=== PATIENT | male | born 1990 | race Caucasian/White ===

== ENCOUNTER 2018-08-11 21:14 | Emergency (ER) | payer MEDICAID, SELFPAY ==
[2018-08-11 21:14] VITALS: BP 138/82; PULSE 117; RESP 16; TEMP 35.6; O2SAT 95; BMI 26.4
--- NOTE | 2018-08-11 22:04 | ED.VISSUMM ---
- ER Visit Summary Date of Service: 08/11/18 Chief Complaint: Back injury History of Present Illness: The patient is a 28 M who presents for a back injury that occurred today at work. 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 He was bent over lifting a bucket when he had severe right lower back pain upon standing. Pain is been continuous and worse with movement. He has difficulty changing position. He denies any tingling, weakness or radiation to the legs. No abdominal pain, urinary retention or incontinence, fecal retention or incontinence, saddle anesthesia. Patient states she had mild numbness in his feet. No medical history. Patient tried ibuprofen without relief. Patient does not want to file a workers comp. Physical Examination: Vital signs: afebrile, hemodynamically stable, no hypoxia on room air General: well nourished, well developed, in no distress Skin: warm, dry, no rash, no pallor HEENT: normocephalic and atraumatic; PERRL, EOMI, moist mucous membranes Cardiovascular: Tachycardic rate and rhythm without murmurs, no peripheral edema, 2+ pulses all distal extremities Respiratory: No increased work of breathing, lungs are clear to auscultation bilaterally, no rales, rhonchi or wheezing Abdominal: Abdomen is soft, mildly tender in the right lateral abdomen, worse with engagement of the abdominal musculature, with normoactive bowel sounds, no guarding or rebound, no masses Back: Tenderness in the right lumbar region with palpable paraspinal muscle spasm, tender to palpation, no midline deformities or step-offs. No left-sided tenderness. Straight leg raise is negative bilaterally. MSK: Moves all extremities, no deformities, normal strength Neuro: Awake and alert, oriented ?4. No facial droop, sensation and motor function intact and symmetric including in the bilateral feet Test Results: [] Emergency Department Course and Treatment: Patient has no red flag symptoms that would be concerning for spinal cord injury or infection. He does have palpable muscle spasm in the right lower back and involvement of the right lateral abdominal musculature, with tenderness and worsening of the pain with contraction of his abdominal wall. Patient did not want an injection. Patient was given naproxen and Flexeril in the emergency department. He was given prescriptions for the same. Patient discharged home with a ride. Treatment Plan: [] Disposition: [] Impression: Right lumbar strain This note was generated with [employer] dictation software. It may contain incorrect words, spelling, and punctuation that were not noted in review of the chart prior to signing ED Disposition - Plan for ED Patient: Chief Complaint: Back Prescriptions: Naproxen [Naprosyn] 500 mg PO BID PRN #20 tab PRN Reason: Pain Cyclobenzaprine [Flexeril] 5 - 10 mg PO TID PRN #20 tab PRN Reason: Muscle Spasm Referrals: [facility] Doctor,Out of [Primary Care Provider] -
[2018-08-11] MEDS: Naproxen 500 MG Tablet PO (22:07)
--- NOTE | 2018-08-11 22:08 | ED.DEP ---
ED Disposition - Plan for ED Patient: Disposition: Home or Assisted Living Chief Complaint: Back Instructions: ED Sprain Strain Lumbar, ED Low Back Pain Injury Prescriptions: Naproxen [Naprosyn] 500 mg PO BID PRN #20 tab PRN Reason: Pain Cyclobenzaprine [Flexeril] 5 - 10 mg PO TID PRN #20 tab PRN Reason: Muscle Spasm Referrals: [facility] Doctor,Out of [Primary Care Provider] - Marco Gonzalez MD [STAFF PHYSICIAN] - Additional Instructions: No driving or operating any heavy equipment or doing any other dangerous activities while taking the Flexeril, as it may make you feel sleepy or loopy. If you have any worsening of your condition or any new concerning symptoms, please return immediately to the emergency department for another evaluation.
[2018-08-11 22:40] VITALS: RESP 16
== END 2018-08-11 22:41 | disposition home or self-care (01) ==
PROVIDERS: Emergency Provider Emergency Medicine
DX: S39.012A Strain of muscle, fascia and tendon of lower back, initial encounter (principal); M62.830 Muscle spasm of back; X50.9XXA Other and unspecified overexertion or strenuous movements or postures, initial encounter; Y93.89 Activity, other specified; Y92.89 Other specified places as the place of occurrence of the external cause; Y99.0 Civilian activity done for income or pay; R20.0 Anesthesia of skin
CPT/HCPCS: 99283

== ENCOUNTER 2018-09-10 10:42 | Emergency (ER) | payer MEDICAID, SELFPAY ==
[2018-09-10 10:43] VITALS: BP 136/75; PULSE 97; RESP 18; TEMP 36.6; O2SAT 98; BMI 27.7
--- NOTE | 2018-09-10 11:02 | ED.VISSUMM ---
- ER Visit Summary Date of Service: 09/10/18 Chief Complaint: [Head injury] History of Present Illness: The patient is a 28 M [presents the emergency department complaint of a head injury that occurred about 4 hours ago. Patient states that he was working in his garage when he bent over to pick some tools up off the floor and when he stood up he struck his head on a car lift. Patient states that things kind of went black for a few seconds but he continued to stand and did not fall. There is no loss of consciousness. Patient denies any neck pain. He denies any visual changes. He said no nausea or vomiting. Patient does complain of a headache to the left side of his head.] Physical Examination: [HEENT-PERRLA, EOMI. Cranial nerves II through XII grossly intact. TMs clear. Mucous membranes moist. No adenopathy. No external evidence of trauma to the patient's head or scalp. No bony depressions noted. No scalp hematomas. Cardiovascular-regular rate and rhythm without murmur or ectopy Lungs-clear to auscultation, chest wall stable without crepitus or subcu emphysema Abdomen-normoactive bowel sounds, soft, nontender, no rebound or rigidity, no peritoneal signs. Neuro [id number] and heel stewart testing within normal limits, negative Romberg, negative pronator drift, fundi benign Extremities-intact ?4, normal range of motion, normal pulses, atraumatic] Test Results: [None indicated] Emergency Department Course and Treatment: [Patient was given a dose of ibuprofen] Treatment Plan: [Patient advised use ibuprofen or Tylenol for discomfort. Patient does not meet criteria for any type of imaging at this time. Disposition: Discharge to home in stable condition] Impression: [Closed head injury/concussion] This note was generated with [employer] dictation software. It may contain incorrect words, spelling, and punctuation that were not noted in review of the chart prior to signing ED Disposition - Plan for ED Patient: Chief Complaint: Head Injury Referrals: [facility] Doctor,Out of [Primary Care Provider] -
--- NOTE | 2018-09-10 11:05 | DCINST.ED_ITS ---
ED Disposition - Plan for ED Patient: Chief Complaint: Head Injury Instructions: ED Head Injury Closed Referrals: [facility] Doctor,Out of [Primary Care Provider] - Silva Fountain MD [STAFF PHYSICIAN] - 3-5 Days
[2018-09-10] MEDS: Ibuprofen 600 MG Tablet PO (11:11)
--- OUTSIDE RECORDS SUMMARY | 2018-10-27 14:11 | XMS RPT_ITS ---
:1990 Author Organization OHIP Care Team Providers Name Role Phone Primay Care Physicia, No Primary Care Unavailable Herminia Boothe Attending Unavailable Sofiya Nuñez Attending Unavailable Primay Care Physicia, No Primary Care Unavailable Ean Rivera Attending Unavailable PROVIDER, UNKNOWN Referring Unavailable FLORENTINO LUNDBERG Primary Care Unavailable Josse Negrete Attending Unavailable PROVIDER, UNKNOWN Referring Unavailable FLORENTINO LUNDBERG Primary Care Unavailable Giuliana Oliva Attending Unavailable PROVIDER, UNKNOWN Referring Unavailable UNKNOWN, PROVIDER Primary Care Unavailable PROVIDER, UNKNOWN Referring Unavailable FLORENTINO LUNDBERG Primary Care Unavailable MADDIE WOO Attending Unavailable [employer] Attending Unavailable [employer] Attending Unavailable PROBLEMS PROBLEMS DATE TYPE CONDITION / CODE ATTENDING STATUS SOURCE 06/20/2018 Admitting Other chronic pain MADDIE WOO Active [employer] Diagnosis / G89.29(ICD-10) System Repository 06/20/2018 Admitting Low back pain / MADDIE WOO [email or web address] Diagnosis M54.5(ICD-10) System Repository 06/20/2018 Admitting Allergy status to MADDIE WOO [email or web address] Diagnosis penicillin / System Z88.0(ICD-10) Repository 06/20/2018 Admitting Nicotine MADDIE WOO [employer] Diagnosis dependence, System cigarettes, Repository uncomplicated / F17.210(ICD-10) 06/20/2018 Admitting Encounter for MADDIE WOO [email or web address] Diagnosis immunization / System Z23(ICD-10) Repository 06/11/2018 Active Acute pharyngitis, NA Active [facility] unspecified / Clinic Other J02.9(ICD-10) [place] Repository 06/11/2018 Active Otitis media, NA Active [facility] unspecified, Clinic Other unspecified ear / [place] H66.90(ICD-10) Repository 05/11/2018 Active Low back pain / NA Active [facility] M54.5(ICD-10) Clinic Other [place] Repository 05/11/2018 Active Gastro-esophageal NA Active [facility] reflux disease Clinic Other without esophagitis [place] / K21.9(ICD-10) Repository 05/11/2018 Active Other chest pain / NA Active [facility] R07.89(ICD-10) Clinic Other [place] Repository 05/11/2018 Admitting Unknown / [employer] Active [facility] [facility] diagnosis UNK(Unknown) [facility] Repository PROCEDURES PROCEDURES No Procedure Records FoundRESULTS RESULTS DISCHARGE INSTRUCTION Observed: 09/10/2018 Status: F Source: BLAZE 11:05 AM [facility] Medical Records Department [address] [place] [address] Discharge Instruction 09/10/18 1104 MR#: [id number] Acct: [id number] Name: HOANG JACOBSON Rep #: [id number] : 1990 28 From: Sofiya Nuñez DO [facility]CP[facility] Status: PRE ER ED Disposition - Plan for ED Patient: Chief Complaint: Head Injury Instructions: ED Head Injury Closed Referrals: [facility] Doctor,Out of [Primary Care Provider] - Silva Fountain MD [STAFF PHYSICIAN] - 3-5 Days What to do if you have Problems For any increased pain, shortness of breath, bleeding, nausea or vomiting, chest pain, or any unexpected problems, contact your Primary Care Provider. Call [facility] ([phone]) or report to the closest Emergency Room. Call 911 if necessary. 09/10/18 1105 <Electronically signed by Sofiya Nuñez DO> Date Sofiya Nuñez DO Cosigner Signature (If Indicated): Date CC: [facility] EMERGENCY DEPARTMENT Observed: 09/10/2018 Status: F Source: CONVERSE SUMMARY 11:04 AM [facility] Medical Records Department [address] [facility] [address] [place] [address] Emergency Department Summary 09/10/18 1102 MR#: [id number] Acct: [id number] Name: HOANG JACOBSON Rep #: [id number] : 1990 28 From: Sofiya Nuñez DO PCP: [facility] DOCTOR Status: PRE ER - ER Visit Summary Date of Service: 09/10/18 Chief Complaint: [Head injury] History of Present Illness: The patient is a 28 M [presents the emergency department complaint of a head injury that occurred about 4 hours ago. Patient states that he was working in his garage when he bent over to pick some tools up off the floor and when he stood up he struck his head on a car lift. Patient states that things kind of went black for a few seconds but he continued to stand and did not fall. There is no loss of consciousness. Patient denies any neck pain. He denies any visual changes. He said no nausea or vomiting. Patient does complain of a headache to the left side of his head.] Physical Examination: [HEENT-PERRLA, EOMI. Cranial nerves II through XII grossly intact. TMs clear. Mucous membranes moist. No adenopathy. No external evidence of trauma to the patient's head or scalp. No bony depressions noted. No scalp hematomas. Cardiovascular-regular rate and rhythm without murmur or ectopy Lungs-clear to auscultation, chest wall stable without crepitus or subcu emphysema Abdomen-normoactive bowel sounds, soft, nontender, no rebound or rigidity, no peritoneal signs. Neuro dmev-sjamsk-zcut and heel stewart testing within normal limits, negative Romberg, negative pronator drift, fundi benign Extremities-intact 4, normal range of motion, normal pulses, atraumatic] Test Results: [None indicated] Emergency Department Course and Treatment: [Patient was given a dose of ibuprofen] Treatment Plan: [Patient advised use ibuprofen or Tylenol for discomfort. Patient does not meet criteria for any type of imaging at this time. Disposition: Discharge to home in stable condition] Impression: [Closed head injury/concussion] This note was generated with [employer] dictation software. It may contain incorrect words, spelling, and punctuation that were not noted in review of the chart prior to signing ED Disposition - Plan for ED Patient: Chief Complaint: Head Injury Referrals: [facility] Doctor,Out of [Primary Care Provider] - What to do if you have Problems For any increased pain, shortness of breath, bleeding, nausea or vomiting, chest pain, or any unexpected problems, contact your Primary Care Provider. Call [facility] ([phone]) or report to the closest Emergency Room. Call 911 if necessary. 09/10/18 1104 <Electronically signed by Sofiya Nuñez DO> Date Sofiya Nuñez DO Cosigner Signature (If Indicated): Date CC: [facility] EMERGENCY DEPARTMENT Observed: 08/12/2018 Status: F Source: BLAZE SUMMARY 12:17 AM [facility] Medical Records Department [address] [place] [address] Emergency Department Summary 08/11/18 2204 MR#: [id number] Acct: [id number] Name: HOANG JACOBSON Rep #: [id number] : 1990 28 From: Herminia Boothe MD PCP: [facility] DOCTOR Status: DEP ER - ER Visit Summary Date of Service: 08/11/18 Chief Complaint: Back injury History of Present Illness: The patient is a 28 M who presents for a back injury that occurred today at work. 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 He was bent over lifting a bucket when he had severe right lower back pain upon standing. Pain is been continuous and worse with movement. He has difficulty changing position. He denies any tingling, weakness or radiation to the legs. No abdominal pain, urinary retention or incontinence, fecal retention or incontinence, saddle anesthesia. Patient states she had mild numbness in his feet. No medical history. Patient tried ibuprofen without relief. Patient does not want to file a workers comp. Physical Examination: Vital signs: afebrile, hemodynamically stable, no hypoxia on room air General: well nourished, well developed, in no distress Skin: warm, dry, no rash, no pallor HEENT: normocephalic and atraumatic; PERRL, EOMI, moist mucous membranes Cardiovascular: Tachycardic rate and rhythm without murmurs, no peripheral edema, 2+ pulses all distal extremities Respiratory: No increased work of breathing, lungs are clear to auscultation bilaterally, no rales, rhonchi or wheezing Abdominal: Abdomen is soft, mildly tender in the right lateral abdomen, worse with engagement of the abdominal musculature, with normoactive bowel sounds, no guarding or rebound, no masses Back: Tenderness in the right lumbar region with palpable paraspinal muscle spasm, tender to palpation, no midline deformities or step-offs. No left-sided tenderness. Straight leg raise is negative bilaterally. MSK: Moves all extremities, no deformities, normal strength Neuro: Awake and alert, oriented 4. No facial droop, sensation and motor function intact and symmetric including in the bilateral feet Test Results: [] Emergency Department Course and Treatment: Patient has no red flag symptoms that would be concerning for spinal cord injury or infection. He does have palpable muscle spasm in the right lower back and involvement of the right lateral abdominal musculature, with tenderness and worsening of the pain with contraction of his abdominal wall. Patient did not want an injection. Patient was given naproxen and Flexeril in the emergency department. He was given prescriptions for the same. Patient discharged home with a ride. Treatment Plan: [] Disposition: [] Impression: Right lumbar strain This note was generated with [employer] dictation software. It may contain incorrect words, spelling, and punctuation that were not noted in review of the chart prior to signing ED Disposition - Plan for ED Patient: Chief Complaint: Back Prescriptions: Naproxen [Naprosyn] 500 mg PO BID PRN #20 tab PRN Reason: Pain Cyclobenzaprine [Flexeril] 5 - 10 mg PO TID PRN #20 tab PRN Reason: Muscle Spasm Referrals: [facility] Doctor,Out of [Primary Care Provider] - What to do if you have Problems For any increased pain, shortness of breath, bleeding, nausea or vomiting, chest pain, or any unexpected problems, contact your Primary Care Provider. Call [facility] ([phone]) or report to the closest Emergency Room. Call 911 if necessary. 08/12/18 0017 <Electronically signed by Herminia Boothe MD> Date Herminia Boothe MD Cosigner Signature (If Indicated): Date CC: [facility] DOCTOR DISCHARGE INSTRUCTION Observed: 08/11/2018 Status: F Source: BLAZE 11:48 PM [facility] Medical Records Department [address] [place] [address] Discharge Instruction 08/11/18 2208 MR#: [id number] Acct: [id number] Name: HOANG JACOBSON Rep #: [id number] : 1990 28 From: Herminia Boothe MD PCP: [facility] Status: DEP ER ED Disposition - Plan for ED Patient: Disposition: Home or Assisted Living Chief Complaint: Back Instructions: ED Sprain Strain Lumbar, ED Low Back Pain Injury Prescriptions: Naproxen [Naprosyn] 500 mg PO BID PRN #20 tab PRN Reason: Pain Cyclobenzaprine [Flexeril] 5 - 10 mg PO TID PRN #20 tab PRN Reason: Muscle Spasm Referrals: [facility] Doctor,Out of [Primary Care Provider] - Marco Gonzalez MD [STAFF PHYSICIAN] - Additional Instructions: No driving or operating any heavy equipment or doing any other dangerous activities while taking the Flexeril, as it may make you feel sleepy or loopy. If you have any worsening of your condition or any new concerning symptoms, please return immediately to the emergency department for another evaluation. What to do if you have Problems For any increased pain, shortness of breath, bleeding, nausea or vomiting, chest pain, or any unexpected problems, contact your Primary Care Provider. Call [facility] ([phone]) or report to the closest Emergency Room. Call 911 if necessary. 08/11/18 2348 <Electronically signed by Herminia Boothe MD> Date Herminia Boothe MD Cosigner Signature (If Indicated): Date CC: [facility] ED PROV NOTE Observed: 06/11/2018 Status: COMPLETED Source: [place] 12:47 PM CLINIC OTHER CAMPUS REPOSITORY O ID: [id number] Author: Candace Ortiz) MENG Billy Service: Emergency Medicine Author Type: Physician Headwaiter/Headwaitress Type: ED Provider Notes Filed: 06/11/2018 1:45 PM Note Text: ED Provider Note Patient Name: Hoang Jacobson SERVICE DATE: 06/11/18 History Patient presents with: Sore Throat HPI This is a 28-year-old male with history of back pain who presents to the ED with complaints of sore throat ?2 days. States that pain is worse with swallowing but he is still able to eat and drink without difficulty. He has not tried anything for his symptoms. Denies any voice changes. He has also had some left ear pain over the past few days. Endorses cough and rhinorrhea. Unsure of any known sick contacts. Denies any fever, chills, neck pain, nausea, vomiting, diarrhea, lightheadedness or dizziness. PAST MEDICAL HISTORY Diagnosis Date - Back pain No past surgical history on file. No family history on file. Social History Social History Main Topics - Smoking status: Current Every Day Smoker Packs/day: 0.50 Types: Cigarettes - Smokeless tobacco: Never Used - Alcohol use No - Drug use: No - Sexual activity: Yes Partners: Female ALLERGIES Allergen Reactions - Penicillins Hives not sure, my mother told me I was ALLERGIC when I was young Review of Systems Constitutional: Negative for chills and fever. HENT: Positive for ear pain, rhinorrhea and sore throat. Negative for congestion, facial swelling, trouble swallowing and voice change. Eyes: Negative for visual disturbance. Respiratory: Negative for shortness of breath. Cardiovascular: Negative for chest pain. Gastrointestinal: Negative for abdominal pain, diarrhea, nausea and vomiting. Musculoskeletal: Negative for arthralgias and neck pain. Skin: Negative for color change. Neurological: Negative for dizziness, syncope, light-headedness, numbness and headaches. All other systems reviewed and are negative. Physical Exam BP 123/78 Pulse 92 Temp (Src) 97.7 (Oral) Resp 16 Ht 6' 1 (1.85m) Wt 200 lb (90.7kg) SpO2 95% BMI 26.39 kg/(m2). Physical Exam Constitutional: He is oriented to person, place, and time. He appears well-developed and well-nourished. No distress. Well-appearing male, calm, in no acute distress. HENT: Head: Normocephalic and atraumatic. Right Ear: Tympanic membrane, external ear and ear canal normal. No mastoid tenderness. Tympanic membrane is not erythematous and not bulging. Left Ear: External ear and ear canal normal. No mastoid tenderness. Tympanic membrane is erythematous and bulging. Nose: Nose normal. Mouth/Throat: Uvula is midline, oropharynx is clear and moist and mucous membranes are normal. No trismus in the jaw. No uvula swelling. No oropharyngeal exudate, posterior oropharyngeal edema or tonsillar abscesses. Post oropharynx with mild erythema and post nasal drainage. No exudates, swelling, peritonsillar abscess or trismus. Patient managing all secretions and speaking in complete sentences without difficulty. Eyes: Pupils are equal, round, and reactive to light. Conjunctivae and EOM are normal. Neck: Normal range of motion. Neck supple. No nuchal rigidity or meningismus. Cardiovascular: Normal rate, regular rhythm, normal heart sounds and intact distal pulses. No murmur heard. Pulmonary/Chest: Effort normal and breath sounds normal. No respiratory distress. He has no wheezes. He has no rales. Abdominal: Soft. He exhibits no distension. There is no tenderness. Musculoskeletal: Normal range of motion. He exhibits no edema or deformity. Neurological: He is alert and oriented to person, place, and time. Skin: Skin is warm and dry. Psychiatric: He has a normal mood and affect. His speech is normal and behavior is normal. Judgment and thought content normal. Cognition and memory are normal. Nursing note and vitals reviewed. Diagnostic Testing ED Labs Ordered and Reviewed - No data to display Procedures ED Course / Clinical Impression Vital signs were reviewed. Triage records and medical records were reviewed. Nursing notes were reviewed and incorporated. Patient is a 28-year-old male who presents with complaints of sore throat ?2 days. Pt is well-appearing, hemodynamically stable and afebrile. On exam, throat mildly erythematous but left ear with findings consistent with acute otitis media. Will treat with azithromycin as patient has penicillin allergy which he believes is severe. Will also provide Rx for Tylenol for pain. Do not feel his history and exam consistent with strep however ATBs for otitis will cover for this as well. Pt to f/u with PCP. RT ED red flags/precautions and follow-up instructions were provided. I encouraged patient to return to ED immediately if symptoms worsen and/or new symptoms develop. Patient discharged home in stable condition. Patient expressed understanding and is amendable to this course of action. Patient understood suspected diagnosis and instruction. No barriers of communication were apparent and I answered all questions. This note was generated using [employer] voice dictation. All resonable efforts were made to correct dictation errors but they still may occur given the nature of the software. Clinical Impressions as of Jun 11 1343 Sore throat Acute otitis media, unspecified otitis media type MDM / Disposition / Plan Disposition The patient was discharged and given RX. Counseled patient regarding suspected diagnosis. As well as the need for follow-up. Discharged home with verbal and written instructions. They were instructed to return as needed for persistent or worsening symptoms or any new concerns. Condition at disposition is stable and improved. SIGNATURE: LES Parker) MENG Billy 06/11/18 1345 ED NOTE Observed: 06/11/2018 Status: COMPLETED Source: [place] 12:33 PM [facility] REPOSITORY HNO ID: [id number] Author: Rona ValdezRn) LISA Weber Service: Emergency Medicine Author Type: Registered Nurse Type: ED Notes Filed: 06/11/2018 12:34 PM Note Text: Pt states he developed throat pain x a few days. Denies fevers/chills. Able to speak in full sentences in triage as well as manage secretions with no difficulty. ED NOTE Observed: 05/11/2018 Status: COMPLETED Source: [place] 12:41 PM [facility] REPOSITORY HNO ID: [id number] Author: Roxy ValdezRn) LIAS Henning Service: Emergency Medicine Author Type: Registered Nurse Type: ED Notes Filed: 05/11/2018 12:41 PM Note Text: Patient returned to the Emergency Department. CHEST 2 VIEWS Observed: 05/11/2018 Status: F Source: [facility] 12:41 PM HEALTH SYSTEM REPOSITORY Performed at [facility] APPROVED BY: Darin Cohen MD EXAMINATION: CHEST RADIOGRAPH (2 VIEW FRONTAL & LATERAL) CLINICAL HISTORY: Chest pain. No known injury. MQ: XC2_5 Comparison: 10/02/2011 RESULT: Lines, tubes, and devices: None. Lungs and pleura: No consolidation. No lung mass. No pleural effusion. Cardiomediastinal silhouette: Normal cardiomediastinal silhouette. Other: No acute bony abnormality. IMPRESSION: No acute radiographic abnormality. LUMBOSACRAL SPINE 2 OR Observed: 05/11/2018 Status: F Source: [facility] 3 VIEWS 12:41 PM HEALTH SYSTEM REPOSITORY Performed at [facility] APPROVED BY: Darin Cohen MD EXAM TITLE: LUMBOSACRAL SPINE 2 OR 3 VIEWS DATE: 05/11/2018 12:29 COMPARISON: Lumbar spine radiographs dated 10/22/2014. CLINICAL INDICATION/HISTORY: Patient present with back pain. TECHNIQUE: AP, lateral and cone down lateral views of the lumbar spine are presented. FINDINGS: There are five swx-hlo-xuxqxgm lumbar vertebra. No fracture or subluxations are noted. The disc spaces are well preserved. Minimal rightward convex scoliotic curvature lumbar spine. IMPRESSION: No acute findings radiographically. Minimal rightward convex scoliotic curvature lumbar spine. ED NOTE Observed: 05/11/2018 Status: COMPLETED Source: [place] 12:30 PM [facility] OTHER [facility]US REPOSITORY HNO ID: [id number] Author: Roxy ValdezRn) LISA Henning Service: Emergency Medicine Author Type: Registered Nurse Type: ED Notes Filed: 05/11/2018 12:41 PM Note Text: Patient transported to xray ED NOTE Observed: 05/11/2018 Status: COMPLETED Source: [place] 12:18 PM [facility] OTHER CAMPUS REPOSITORY HNO ID: [id number] Author: Roxy Zavaleta) LISA Henning Service: Emergency Medicine Author Type: Registered Nurse Type: ED Notes Filed: 05/11/2018 12:19 PM Note Text: Ready for xray HEMOGRAM/DIFF Collected: 05/11/2018 Status: F Source: [facility] 12:00 PM HEALTH SYSTEM REPOSITORY TYPE CODE TESTS RESULT OUT OF REFERENCE UNITS RANGE LAB WBC(LOINC) 4.23-9.07 thou/cmm WBC High 9.09 LAB RBC(LOINC) 4.63-6.08 mil/cmm Low RBC 4.31 LAB HGB(LOINC) 13.7-17.5 g/dL Hgb 13.7 LAB HCT(LOINC) 40.1-51.0 % Low Hct 39.8 LAB MCV(LOINC) 83.2-95.6 fl MCV 92.3 LAB MCH(LOINC) 25.7-32.2 pg MCH 31.8 LAB MCHC(LOINC 32.3-36.5 % ) MCHC 34.4 LAB RDW(LOINC) 11.6-14.4 % RDW 11.9 LAB RDWSD(LOIN 36.1-45.8 fl C) RDW SD 39.9 LAB PLT(LOINC) 141-365 thou/cmm Platelet 225 LAB MPV(LOINC) 8.7-12.0 fl MPV 9.0 LAB NRBCR(LOIN 0.0-0.2 % C) Nucleated RBC % 0.2 LAB SEG(LOINC) % Seg Neutrophil 53.1 LAB IGRE(LOINC % ) Immature Grans 1.20 LAB LYMPH(LOIN % C) Lymphocyte 32.5 LAB MNO(LOINC) % Monocyte 8.3 LAB EOSIN(LOIN % C) Eosinophil 4.2 LAB BASO(LOINC % ) Basophil 0.7 LAB NRBCA(LOIN 0.00-0.01 thou/cmm C) High Nucleated RBC 0.02 Absolute LAB SEGN(LOINC 1.78-5.38 thou/cmm ) Abs. Neut (ANC) 4.83 LAB IGAB(LOINC 0.00-0.05 thou/cmm ) Abs High Immature Grans 0.11 LAB LYMN(LOINC 0.84-2.85 thou/cmm ) Abs. High Lymph 2.95 LAB MONON(LOIN 0.30-0.82 thou/cmm C) Abs. [place] 0.75 LAB EOSN(LOINC 0.04-0.54 thou/cmm ) Abs. Eosin 0.38 LAB BASON(LOIN 0.01-0.08 thou/cmm C) Abs. Baso 0.06 Performed By: #### CBCD1 #### [place] [address] [facility] TROPONIN I Collected: 05/11/2018 Status: F Source: [facility] 12:00 HEALTH SYSTEM REPOSITORY TYPE CODE TESTS RESULT OUT OF REFERENCE UNITS RANGE LAB ERTRP(LOINC 0.015-0.045 ng/ml ) [facility] Troponin I < 0.015 Performed By: #### ERTRP #### [place] [address] COMPREHENSIVE PANEL Collected: 05/11/2018 Status: F Source: [facility] 12:00 HEALTH SYSTEM REPOSITORY TYPE CODE TESTS RESULT OUT OF REFERENCE UNITS RANGE LAB NA(LOINC) 136-145 mEq/L Sodium Blood 140 LAB K(LOINC) 3.5-5.1 mEq/L Potassium Blood 4.5 LAB CL(LOINC) 98-107 mEq/L Chloride Blood 107 LAB CO2(LOINC) 21-32 mEq/L CO2 Blood 29 LAB GLU(LOINC) 70-99 mg/dL Glucose Blood 78 LAB BUN(LOINC) 7-18 mg/dL BUN Blood 9 LAB CREA(LOINC 0.67-1.17 mg/dL ) Creatinine Blood 0.89 LAB CA(LOINC) 8.5-10.1 mg/dL Calcium Blood 8.9 LAB ALB(LOINC) 3.4-5.0 g/dL Albumin Blood 3.5 LAB TP(LOINC) 6.4-8.2 g/dL Total Protein 6.4 LAB AST(LOINC) 9-37 U/L AST-SGOT Blood 23 LAB ALT(LOINC) 12-78 U/L ALT-SGPT Blood 40 LAB ALKP(LOINC 46-116 U/L ) Alk Phosphatase 62 LAB BILIT(LOIN 0.2-1.0 mg/dL C) Total Bilirubin 0.8 LAB ANGAP(LOIN 8-16 C) Anion Gap 9 Performed By: #### P14 #### [place] [address] MDRD GFR Collected: 05/11/2018 Status: F Source: [facility] 12:00 PM HEALTH SYSTEM REPOSITORY TYPE CODE TESTS RESULT OUT OF RANGE REFERENCE UNITS LAB GFRFN(LOINC >60mL/min/1.73m ) 2 eGFR >60 Result Comment: If the patient is , multiply the result by 1.210. Performed By: #### GFR #### [place] [address] ED NOTE Observed: 05/11/2018 Status: COMPLETED Source: [facility] 11:57 AM [facility]IN[facility] OTHER CAMPUS REPOSITORY HNO ID: [id number] Author: Roxy (Rn) LISA Henning Service: Emergency Medicine Author Type: Registered Nurse Type: ED Notes Filed: 05/11/2018 11:57 AM Note Text: Exam by ED PROV NOTE Observed: 05/11/2018 Status: COMPLETED Source: [place] 11:55 AM [facility] OTHER CAMPUS REPOSITORY HNO ID: [id number] Author: MENG Bhakta (Pa) Service: Emergency Medicine Author Type: Physician Headwaiter/Headwaitress Type: ED Provider Notes Filed: 05/11/2018 2:04 PM Note Text: ED Provider Note Patient Name: Hoang Jacobson SERVICE DATE: 05/11/18 History Patient presents with: Back Pain: pt c/o back pain and right sided chest pain that began a few days ago, denies injury, denies illness, denies fever/chills/cough Chest Pain Hoang Jacobson is a 28 year old MALE with PMHx of psych d/o, methamphetamine abuse presenting to the ED c/o back pain and chest pain x 3 days. Pt states he self-admitted himself to [facility] for treatment. He has been sitting in classes in hard plastic chairs and started experiencing back pain approx 3 days ago that is intermittent. Denies trauma/injury. Located in middle lumbar spine and right lumbar paraspinal musculature. No radiation. Describes pain as sharp. Aggravating factors include sitting in the hard plastic chairs in class and sitting up. Alleviating factors include Tylenol and sitting still. He denies fevers/chills, urinary/fecal incontinence, numbness/tingling, saddle anesthesia, B/L LE weakness, h/o IVDA. Pt also has c/o chest pain, located on right side, no radiation. It is intermittent. Not worse with exertion. Aggravating factors include laying down and alleviating factors include sitting up. It has been intermittent x 3 days. He has + family cardiac history but no personal cardiac history. Associates SOB but states he has had this previously. Pt is smoker. He denies n/v, diaphoresis, dizziness/lightheadedness, vision changes. Pt also denies abdominal pain, cough, urinary sx, syncope, skin changes. Pt denies recent travel, trauma, surgery, h/o cancer. 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 No past surgical history on file. No family history on file. Social History Social History Main Topics - Smoking status: Not on file - Smokeless tobacco: Not on file - Alcohol use Not on file - Drug use: Unknown - Sexual activity: Not on file ALLERGIES Allergen Reactions - Penicillins Hives not sure, my mother told me I was ALLERGIC when I was young Review of Systems Constitutional: Negative for chills, diaphoresis and fever. Eyes: Negative for visual disturbance. Respiratory: Positive for shortness of breath. Negative for cough. Cardiovascular: Positive for chest pain. Gastrointestinal: Negative for abdominal pain, nausea and vomiting. Musculoskeletal: Positive for back pain. Skin: Negative for color change. Neurological: Negative for dizziness, syncope, weakness, light-headedness and numbness. Physical Exam BP 117/66 Pulse 74 Temp (Src) 97.9 (Oral) Resp 16 Ht 6' 1 (1.85m) Wt 180 lb (81.6kg) SpO2 97% BMI 23.75 kg/(m2). Physical Exam Constitutional: He is oriented to person, place, and time. He appears well-developed and well-nourished. No distress. HENT: Head: Normocephalic and atraumatic. Mouth/Throat: Oropharynx is clear and moist. Eyes: Pupils are equal, round, and reactive to light. Conjunctivae and EOM are normal. Neck: Neck supple. Cardiovascular: Normal rate, regular rhythm, normal heart sounds and intact distal pulses. Pulses: Radial pulses are 2+ on the right side, and 2+ on the left side. Pulmonary/Chest: Effort normal and breath sounds normal. No stridor. No respiratory distress. He has no decreased breath sounds. He has no wheezes. Abdominal: Soft. Bowel sounds are normal. He exhibits no distension. There is no tenderness. Musculoskeletal: He exhibits no edema (no LE edema B/L). Cervical back: He exhibits no tenderness, no bony tenderness, no swelling, no edema, no deformity, no laceration, no pain and no spasm. Thoracic back: He exhibits no tenderness, no bony tenderness, no swelling, no edema, no deformity, no laceration, no pain and no spasm. Lumbar back: He exhibits tenderness, bony tenderness and pain. He exhibits normal range of motion, no swelling, no edema, no deformity and no laceration. Right lower leg: He exhibits no swelling and no edema. Left lower leg: He exhibits no swelling and no edema. TTP to lumbar spinal and right paraspinal lumbar musculature. No C or T midline TTP. No step-off or deformity noted. No zoster, ecchymosis, erythema, warmth, fluctuance, or induration noted. ROM full in LE B/L. LE strength +5/5. Distal sensation intact to light touch. Gait stable. No B/L LE edema, erythema, warmth, or TTP. Neurological: He is alert and oriented to person, place, and time. Skin: Skin is warm and dry. He is not diaphoretic. Nursing note and vitals reviewed. DECISION SUPPORT - ED (all recorded) Pulmonary Embolism Row Name 05/11/18 1359 05/11/18 1217 PERC Is pretest probability for PE > than 15% ? 0 Age > 50 0 0 HR >= 100 0 0 spO2 on room air < 95% ? 0 History of prior PE or DVT 0 0 Recent Trauma or Surgery ? 0 Hemoptysis? ? 0 Exogenous Estrogen? ? 0 Unilateral leg swelling ? 0 PERC Score = ? 0 If PERC Score > 0 - The PERC rule is not satisfied and cannot be used to rule out Pulmonary Embolism for this patient ? No need for further workup, as < 2% chance of PE Wells' Clinical signs and symptoms of DVT ? ? PE is #1 Diagnosis, or equally likely ? ? Heart Rate is > 100 ? ? Immobilization at least 3 days or surgery in the previous 4 weeks ? ? Previous objectively diagnosed PE or DVT ? ? Hemoptysis ? ? Malignancy with treatment within 6 months or palliative ? ? Wells' Score = ? ? Diagnostic Testing ED Labs Ordered and Reviewed CBC + AUTO DIFF (AK,AV,EU,FV,HL,SHANDA,MM,SP) - Abnormal; Notable for the following: Result Value Ref Range WBC 9.09 (*) 4.23 - 9.07 thou/cmm RBC 4.31 (*) 4.63 - 6.08 mil/cmm Hematocrit 39.8 (*) 40.1 - 51.0 % Nucleated RBC Absolute 0.02 (*) 0.00 - 0.01 thou/cmm Immature Grans # 0.11 (*) 0.00 - 0.05 thou/cmm Abs. Lymph 2.95 (*) 0.84 - 2.85 thou/cmm All other components within normal limits COMPREHENSIVE METABOLIC PANEL (AK,AV,EU,FV,HL,SHANDA,MM,SP) ECU TROPONIN I ([place] ED) MDRD GFR Procedures ED Course / Clinical Impression Course: Vital signs were reviewed. Triage records were reviewed. Medical records were reviewed. Nursing notes were reviewed and incorporated. 28 y/o M c/o back pain and chest pain x 3 days, intermittent. Pt is afebrile and hemodynamically stable. Non-toxic appearing, in no acute cardiac or respiratory distress. BP 117/66 Pulse 74 Temp 36.6 ?C (97.9 ?F) (Oral) Resp 16 Ht 185.4 cm (6' 1) Wt 81.6 kg (180 lb) SpO2 97% BMI 23.75 kg/m? Labs/Imaging results at this time: - XRay lumbar: No fracture/dislocation, minimal rightward convex scoliotic curvature lumbar spine - XRay chest: no PNA, PTX, pleural effusion - CBC: No significant leukocytosis - CMP: WNL - Trop: <0.015, low suspicion for AMI/ACS - EKG: NSR, no acute ischemic or ST changes Pt given Toradol, Tylenol, and lidoderm patch for pain management in ED, with improvement per patient. Medications lidocaine 5 % 1 Patch (LIDODERM) (1 Patch TRANSDERMAL Not Given 05/11/18 1200) And lidocaine patch - REMOVE (not administered) And lidocaine - VERIFY PATCH (not administered) acetaminophen 650 mg tab(s) (TYLENOL) (650 mg ORAL Given 05/11/18 1211) ketorolac 30 mg injection (TORADOL) (30 mg INTRAMUSCULAR Given 05/11/18 121) Upon re-evaluation, patient states pain has improved. Pt remains stable throughout ED course. Clinical Impressions as of May 11 1400 Acute right-sided low back pain without sciatica Gastroesophageal reflux disease, esophagitis presence not specified Atypical chest pain MDM / Disposition / Plan At this time, the most likely Dx is atypical chest pain, acid reflux, low back pain. Will treat with Rx Prilosec trial, Lidoderm patches AND OTC Tylenol for back pain, PCP AND ortho f/u. Other Dxs considered but unlikely d/t HANDP, labs and imaging findings: lumbar fx, cauda equina, epidural abscess, ACS, PTX, PE. Pt discharged home in good and stable condition, given Rx for Prilosec, lidoderm patches. Pt instructed to f/u with PCP and ortho in 2 days and encouraged to return to ED if symptoms worsen or if new symptoms develop. Pt given close return precautions including worsening chest pain, n/v, fevers/chills, worsening SOB, syncope, numbness/tingling, change in chest pain. Patient expressed understanding and is amendable to this course of action. Patient understood suspected diagnosis and instruction. No barriers of communication were apparent and I answered all questions. The patient was DISCHARGED: Counseled patient regarding lab results AND radiology results AND suspected diagnosis AND need for follow- up. Discharged home with verbal and written instructions. They were instructed to return as needed for persistent or worsening symptoms or any new concerns. Given a prescription for the following medication(s): Prilosec, lidoderm patches Condition at time of disposition: improved and stable SIGNATURE: LES Bhakta (Meng) MENG Welch 05/11/18 1404 ED NOTE Observed: 05/11/2018 Status: COMPLETED Source: [place] 11:08 AM CLINIC OTHER [facility] REPOSITORY HNO ID: [id number] Author: Shy (Rn) LISA Barajas Service: (none) Author Type: Registered Nurse Type: ED Notes Filed: 05/11/2018 11:08 AM Note Text: Bed: 36-ED Expected date: 05/10/18 Expected time: Means of arrival: Comments: 1100 EKG (AK,AV,EU,FV,HL,SHANDA,MM,SP) Observed: Status: F Source: [place]ER 05/11/2018 10:47 CLINIC OTHER [facility] REPOSITORY NAME : HOANG JACOBSON PID : [id number] : 1990 Gender : Male Race : ORD : [id number] Procedure Date : May 11 2018 10:47 Edit Date : May 19 2018 15:32 Diagnosis:NORMAL SINUS RHYTHM NORMAL ECG WHEN COMPARED WITH ECG OF 02-OCT-2011 04:00, NO SIGNIFICANT CHANGE WAS FOUND Confirmed by Silva Lobo ([id number]) on 05/19/2018 3:32:02 PM Ventricular Rate : 65 BPM Atrial Rate : 65 BPM P-R Interval : 162 ms QRS Duration : 88 ms Q-T Interval : 376 ms QTC Calculation(Bezet) : 391 ms P Brim[place] : 49 degrees R Br[place] : 12 degrees T [place] : 17 degrees Test Reason : Chest Pain Location : 4 : AKED EM Overread By : Silva Lobo Editted By : Silva Lobo Referred By : NA WELCH Acquired by : Lola Johnson ALLERGIES ALLERGIES DATE TYPE / CODE NAME / CODE REACTION SEVERITY SOURCE 09/10/2018 Drug Penicillins/[id number] Unknown Unknown [place] Allergy/416 0476(RXNORM) Community 184188([facility] ED CT) Repository 10/24/2016 Drug PENICILLINS HIVES [facility] Class/55021 Other [place] 1003(SNOMED Repository CT) NG/[id number] PENICILLINS [facility] 6([facility] CT) Repository ENCOUNTERS ENCOUNTERS ADMIT/DISCHARGE ACCOUNT NUMBER ADMITTING ENCOUNTER LOCATION SOURCE CLASS 09/10/2018/09/10/20 [id number] Emergency [address] ding:ED Repository 08/11/2018/08/11/20 [id number] Emergency [address] ding:ED Repository 07/22/2018 [id number] Ambulatory [facility] Repository 06/20/2018 [id number] Ambulatory [facility] Repository 06/11/2018/06/11/20 [id number] Emergency [address] Other [place] Repository 06/11/2018/06/11/20 [id number] Emergency [address] MEDICAL Repository LILLIEBuildi ng:AKEDRoom: SFBed: B 06/04/2018 [id number] Ambulatory [facility] Repository 05/22/2018 [id number] Ambulatory [facility] Repository 05/11/2018/05/11/20 [id number] Emergency [address] Repository 05/11/2018/05/11/20 [id number] Emergency [address] MEDICAL Repository CENTERBuildi ng:AKEDRoom: EMBed: 36 PAYERS PAYERS ENCOUNTER GUARANTOR PAYER SUBSCRIBER SOURCE 09/10/2018 HOANG MCCOY Primary Insurance:[facility] HOANG [id number] [facility] SEESEDOB: [place], [place] Number: [id number] Hospital [address]Ghp: [phone]) [id number] Repository [phone] () Date:[id number] [address]QU: 09/10/2018 Secondary NOT GIVENUNK [place] Insurance:SELF PAY [facility] Number: Effective Repository Date:2018-09-10 08/11/2018 HOANG [id number] Primary Insurance:[facility] HOANG E SEESEDOB: [place] [facility] [id number] [facility] [place] [address]Lfu: Number: [facility] [id number] Repository (HP) Date:[id number] [address] [address]PU: 08/11/2018 Secondary NOT GIVENUNK [place] Insurance:SELF PAY [facility] Number: Effective Repository Date:2018-08-11 07/22/2018 Hoang E Primary Hoang E [facility]DOB[facility] SeeseDOB: Insurance:[employer] [id number] System HealthcarePolicy Repository 1/2 [place] Number: [address], [address]: [place] [address]Zpt: () 06/20/2018 Hoagn E Primary Hoang E SeeseDOB: [facility] SeeseDOB: Insurance:[employer] [id number] [facility] HealthcarePolicy Repository / [place] Number: [address], [address]: [place] [address]Vvv: (HP) 06/11/2018 HOANG SEESEDOB: Primary Insurance:[facility] HOANG SEESEDOB: [place] [facility] [id number] [facility] / [place] MEDICAIDPolicy Number: Repository [place], [id number] [address]Evs: Date: () 06/04/2018 Hoang E Primary Hoang E SeeseDOB: [facility] SeeseDOB: Insurance:[employer] [id number] System HealthcarePolicy Repository /2 [place] Number: [address], [address]: [place] [address]Kqt: () 05/22/2018 Hoang E Primary Hoang E SeeseDOB: [facility] SeeseDOB: Insurance:[employer] [id number] System HealthcarePolicy Repository 1/2 [place] Number: [address], [address]: [place] [address]Gdg: () 05/11/2018 HOANG SILVA: Primary Insurance:[facility] HOANG SILVA: [facility] [id number] COMMUNITY PLAN [id number] 10/01 [place] MEDICAIDPolicy Number: Jair GUZMÁN, [id number] [place] [address]Icd: Date: ()
== END 2018-09-10 11:23 | disposition home or self-care (01) ==
LOC: ED 11:19
PROVIDERS: Emergency Provider Emergency Medicine
DX: S06.0X0A Concussion without loss of consciousness, initial encounter (principal); W22.09XA Striking against other stationary object, initial encounter; Y93.89 Activity, other specified; Y92.008 Other place in unspecified non-institutional (private) residence as the place of occurrence of the external cause; Y99.9 Unspecified external cause status; Z72.0 Tobacco use
CPT/HCPCS: 99283

== ENCOUNTER 2018-11-09 14:23 | Emergency (ER) | payer MEDICAID, SELFPAY ==
[2018-11-09 14:26] VITALS: BP 131/80; PULSE 80; RESP 14; TEMP 36.4; O2SAT 97; BMI 28.5
--- NOTE | 2018-11-09 15:03 | ED.DCSUM_ITS ---
- ER Visit Summary Date of Service: 11/09/18 Chief Complaint: Back pain History of Present Illness: The patient is a 28 M who was sitting on his knees on the bed last night trying to slide his girlfriend from her wheelchair to the bed. He felt sudden sharp pain in the left lower back. He does report some slight right-sided back pain today also. Pain does radiate down his left leg. No direct trauma to his back. He does have history of prior back problems. Physical Examination: Vital signs unremarkable. Patient is lying in bed no acute distress. He easily sits to the side of the bed. Head neck examination unremarkable. Heart is regular rate and rhythm. Lung sounds are clear. Abdomen is soft and nontender. Back examination was no midline tenderness throughout the thoracic or lumbar region. He has reproducible tenderness in the left lower lumbar paraspinals as well as the right mid lumbar paraspinals. Neuro exam reveals good strength and sensation of lower extremities. He has 1+ bilateral patellar reflexes. He has strong distal pulses. Test Results: [] Emergency Department Course and Treatment: Patient be treated with Naprosyn and Flexeril, first dose is given here. He is referred for follow-up to establish a local primary care physician. Treatment Plan: [] Disposition: Discharge Impression: Lumbar paraspinal strain This note was generated with [employer] dictation software. It may contain incorrect words, spelling, and punctuation that were not noted in review of the chart prior to signing ED Disposition - Plan for ED Patient: Referrals: Care Physician,No Primary [Primary Care Provider] -
--- NOTE | 2018-11-09 15:03 | ED.DEP ---
ED Disposition - Plan for ED Patient: Disposition: Home or Assisted Living Instructions: ED Sprain Strain Lumbar Prescriptions: Naproxen [Naprosyn] 500 mg PO BID PRN PRN #20 tablet PRN Reason: Pain Cyclobenzaprine [Flexeril] 10 mg PO TID PRN #20 tablet PRN Reason: Muscle Spasm Referrals: Marco Gonzalez MD [STAFF PHYSICIAN] - As Needed
[2018-11-09] MEDS: Naproxen 500 MG Tablet PO (15:31)
== END 2018-11-09 15:36 | disposition home or self-care (01) ==
LOC: ED 15:19
PROVIDERS: Emergency Provider Emergency Medicine
DX: S39.012A Strain of muscle, fascia and tendon of lower back, initial encounter (principal); X50.9XXA Other and unspecified overexertion or strenuous movements or postures, initial encounter; Y93.F9 Activity, other caregiving; Y92.9 Unspecified place or not applicable; Y99.9 Unspecified external cause status; Z72.0 Tobacco use
CPT/HCPCS: 99283